=== PATIENT | male | born 1940 | race Asian ===

== ENCOUNTER 2017-05-20 20:16 | Emergency (ER) | payer MEDICARE, MEDICAID ==
[~2017-05-20] VITALS: Ht 180.3 cm; Wt 99.3 kg
[2017-05-20 20:21] VITALS: Ht 180.3 cm; Wt 99.3 kg
[2017-05-20 21:40] VITALS: BP 135/82
== END 2017-05-20 21:40 | disposition home or self-care (01) ==
LOC: ED 20:16
DX: L73.9 Follicular disorder, unspecified (principal); I10 Essential (primary) hypertension; E11.9 Type 2 diabetes mellitus without complications
CPT/HCPCS: 82962; J0690

== ENCOUNTER 2017-10-20 00:03 | Inpatient (IN) | payer OTHER ==
[~2017-10-20] VITALS: Ht 180.3 cm; Wt 99.8 kg
[2017-10-20 00:11] VITALS: Ht 180.3 cm; Wt 99.8 kg
[2017-10-20 01:22] LABS: BASOPHIL % 0.4 % (0-2); PLATELET COUNT 235 x10^3mcL (130-400); RED CELL DISTRIBUTION WIDTH 13.6 % (11.5-14.5)
[2017-10-20 01:26] LABS: CALCIUM 9.1 mg/dL (8.5-10.1); CARBON DIOXIDE 27.3 mmol/L (21-32); CHLORIDE SERUM 105 mmol/L (98-107); CREATININE SERUM 1.2 mg/dL (0.7-1.3); GLUCOSE SERUM 182 mg/dL (74-106); POTASSIUM SERUM 4.1 mmol/L (3.5-5.1); SODIUM SERUM 144 mmol/L (136-145)
[2017-10-20 01:33] LABS: ALBUMIN 3.7 g/dL (3.4-5.0); ALKALINE PHOSPHATASE 50 U/L (46-116); ALT/SGPT 24 U/L (16-63); AST/SGOT 23 U/L (15-37); BILIRUBIN TOTAL 0.43 mg/dL (0.20-1.00); MAGNESIUM 1.4 mg/dL (1.8-2.4)
[2017-10-20] MEDS ORDERED: ASPIRIN CHILDRE81 MG (02:45)
[2017-10-20] MEDS ORDERED: LASIX20 MG PO (02:45)
[2017-10-20] MEDS ORDERED: POTASSIUM CHLO20 ME1 (02:45)
[2017-10-20] MEDS ORDERED: GLIPIZIDE2.5 M1 PO (02:46)
[2017-10-20] MEDS ORDERED: METFORMIN HCL500 MG (02:46)
[2017-10-20 04:10] VITALS: BP 159/95
[2017-10-20 04:22] LABS: T3 TOTAL 1.2 ng/mL
[2017-10-20 04:28] LABS: PHOSPHOROUS 4.5 mg/dL (2.5-4.9)
[2017-10-20 04:44] LABS: FREE T4 1.12 ng/dL (0.76-1.46); T4(THYROXINE) 9.3 ug/dL (4.7-13.3)
[2017-10-20 06:45] LABS: microscopic required? NO
[2017-10-20 07:13] LABS: IRON 53 ug/dL (65-170); TOTAL IRON BINDING CAPACITY 301 ug/dL (250-450)
[2017-10-20 07:15] LABS: CALCIUM 8.9 mg/dL (8.5-10.1); CARBON DIOXIDE 27.8 mmol/L (21-32); CHLORIDE SERUM 106 mmol/L (98-107); GLUCOSE SERUM 156 mg/dL (74-106); MAGNESIUM 1.9 mg/dL (1.8-2.4); POTASSIUM SERUM 3.6 mmol/L (3.5-5.1); SODIUM SERUM 143 mmol/L (136-145)
[2017-10-20 07:32] LABS: urine erythrocyte NEGATIVE (NEGATIVE)
[2017-10-20 07:40] LABS: BASOPHIL % 0.2 % (0-2); PLATELET COUNT 221 x10^3mcL (130-400)
[2017-10-20 07:59] LABS: AMPHETAMINE QUAL UR NONE DETECTED (See below)
[2017-10-20 09:24] VITALS: BP 122/79
[2017-10-20] MEDS ORDERED: ACARBOSE50 MG PO (09:48)
[2017-10-20] MEDS ORDERED: ONGLYZA5 M1 PO (09:49)
[2017-10-20] MEDS ORDERED: ENALAPRIL MALEA20 MG PO (09:50)
[2017-10-20] MEDS ORDERED: D3-50001 TAB PO (09:51)
[2017-10-20] MEDS ORDERED: ACT15 PO (09:51)
[2017-10-20] MEDS ORDERED: KLOR-CON M1010 MEQ PO (09:52)
[2017-10-20 11:12] VITALS: BP 143/87
[2017-10-20 16:00] VITALS: BP 130/70
[2017-10-20] MEDS ORDERED: TOP50 PO (16:24)
[2017-10-20] MEDS ORDERED: HEP100I IV (16:24)
[2017-10-20] MEDS ORDERED: HEP5I IV (16:24)
[2017-10-20] MEDS ORDERED: MOR2I IV (16:25)
[2017-10-20 21:35] VITALS: BP 158/101
[2017-10-20 23:10] VITALS: BP 158/101
== END 2017-10-21 03:31 | disposition short-term general hospital (02) | DRG 280 ==
LOC: ED 00:03 → DU 02:35
PROVIDERS: Emergency Medicine; Family Medicine
DX: I21.4 Non-ST elevation (NSTEMI) myocardial infarction (principal); I50.43 Acute on chronic combined systolic (congestive) and diastolic (congestive) heart failure; I16.1 Hypertensive emergency; D68.69 Other thrombophilia; D68.59 Other primary thrombophilia; E11.65 Type 2 diabetes mellitus with hyperglycemia; I10 Essential (primary) hypertension; D64.9 Anemia, unspecified; E78.5 Hyperlipidemia, unspecified; E83.42 Hypomagnesemia; Z79.82 Long term (current) use of aspirin; Z68.30 Body mass index [BMI] 30.0-30.9, adult; Z87.891 Personal history of nicotine dependence; Z79.84 Long term (current) use of oral hypoglycemic drugs
CPT/HCPCS: 82962; 83880; 84439; 85378; J1644; J3475; J3490; Q0092